=== PATIENT | female | born 1990 | race African-American/Black ===

== ENCOUNTER 2016-10-31 16:05 | Observation (INO) | payer MEDICAID ==
[2016-10-31] MEDS ORDERED: DEXTROSE 5% LACT RINGERS 1,000 ML IV SCH (18:20)
== END 2016-11-01 09:58 | disposition home or self-care (01) ==
LOC: LDOP 16:05 → LD 17:30
PROVIDERS: ADMIT Obstetrics & Gynecology; ATTEND Obstetrics & Gynecology
DX: O36.8120 Decreased fetal movements, second trimester, not applicable or unspecified (principal); Z3A.27 27 weeks gestation of pregnancy; O99.212 Obesity complicating pregnancy, second trimester
CPT/HCPCS: 76815; 81002; 96360; 96361; 99215